=== PATIENT | female | born 1945 | race Caucasian/White ===

== ENCOUNTER 2016-11-13 15:35 | Emergency (ER) | payer OTHER ==
[2016-11-13 15:44] VITALS: BP 145/84; PULSE 69; RESP 16; TEMP 98.6; O2SAT 95
--- NOTE | 2016-11-13 15:58 | EDPHY ---
H & P Time Seen by Provider: 11/13/16 15:41 HPI/ROS: CHIEF COMPLAINT: Medication refill HISTORY OF PRESENT ILLNESS: This is a very pleasant 71-year-old female presents at the instruction of her primary care physician requesting refill of her hydrocodone. Patient has been suffering from left hip and low back pain for 6 months. She has been evaluated by Dr. Villalta, her primary care physician. She has been seen by physician at [facility] as well as by Dr. Torres. and had injections into her back as well as into her hip. She has had x-rays and MRIs. She reports orthopedic surgery is having difficult deciding if it is a primary back problem or primary hip problem causing her discomfort. Recently she was given hydrocodone by Dr. Villalta. She was also referred to Dr. Tidwell where she has an appointment on Tuesday. Patient reports calling Dr. padron office on Tuesday to obtain a refill for her hydrocodone. She was advised that he was out of town and that she should come to an urgent care. She then called Dr. Torres office, also advised her that she will need to go to urgent care or the emergency department to have a refill. No fever, chills, chest pain, shortness of breath, palpitations, vomiting, diarrhea, urinary complaints, headache, lightheadedness. REVIEW OF SYSTEMS: Aside from elements discussed in the HPI, a comprehensive 10-point review of systems was reviewed and is negative. PAST MEDICAL HISTORY: hypertension, status post rotator cuff surgery, left hip pain, right hip replacement. SOCIAL HISTORY: Patient is and cares for her disabled . VITAL SIGNS: see nurse's notes. GENERAL: Well-developed, well-nourished, reports pain in her left groin. Discomfort is better when sitting in becomes worse when standing. HEENT: Normal, no discharge or icterus, moist mucous membranes. Neck: supple, FROM. LUNGS: Clear to auscultation bilaterally, no wheezes, rhonchi or rales. CARDIAC: Regular rate and rhythm, no rubs, murmurs or gallops. ABDOMEN: Benign. BACK: No CVA tenderness. No vertebral tenderness. EXTREMITIES: No edema, full range of motion with some discomfort at the left hip. Ambulates with a limp. NEURO: Alert and oriented, grossly nonfocal. SKIN: Warm and dry, no rash. Smoking Status: Former smoker Constitutional: Initial Vital Signs Temperature (C) 37 C 11/13/16 15:36 Heart Rate 69 11/13/16 15:36 Respiratory Rate 16 11/13/16 15:36 Blood Pressure 145/84 H 11/13/16 15:36 O2 Sat (%) 95 11/13/16 15:36 O2 Delivery Mode Room Air Allergies/Adverse Reactions: Penicillins Allergy (Severe, Verified 11/13/16 15:44) Rash Home Medications: Medication Instructions Recorded Atorvastatin Calcium 11/13/16 Gabapentin 11/13/16 HYDROCODONE BIT/ACETAMINOPHEN 11/13/16 Hydrocodone/APAP 5/325 [[place] 1 tab PO Q6H PRN #30 tab 11/13/16 5/325 (RX)] Lexapro 11/13/16 Meloxicam 11/13/16 MDM/Departure - [facility] ED Course/Re-evaluation: Patient was provided with a prescription for hydrocodone. She was advised such that no further prescriptions refills will be provided from the emergency department. Differential Diagnosis: Differential diagnoses for the patient's symptom complex was considered including but not limited to chronic hip pain, chronic back pain, narcotic dependency, drug-seeking behavior, medication noncompliance. - Depart Disposition: Home, Routine, Self-Care Clinical Impression: Chronic left hip pain, Medication refill Back pain Qualifiers: Back pain location: low back pain Chronicity: chronic Back pain laterality: left Sciatica presence: without sciatica Qualified Code(s): M54.5 - Low back pain; G89.29 - Other chronic pain Condition: Good Instructions: Hydrocodone/Acetaminophen (By mouth), Hip Pain (ED) Additional Instructions: Follow-up as scheduled with Dr. Tidwell this Tuesday. I encourage you to develop a plan for your discomfort, as no further pain medications will be provided from the emergency department. Prescriptions: Hydrocodone/APAP 5/325 [[place] 5/325 (RX)] 1 tab PO Q6H PRN #30 tab PRN Reason: Pain Referrals: Stefanie Tidwell MD [Medical Doctor] - As per Instructions
== END 2016-11-13 16:05 | disposition home or self-care (01) ==
LOC: CED 15:35
DX: Z76.0 Encounter for issue of repeat prescription (principal); M25.552 Pain in left hip; M54.5 Low back pain; G89.29 Other chronic pain; I10 Essential (primary) hypertension; Z87.891 Personal history of nicotine dependence